=== PATIENT | female | born 1990 | race Two or more races ===

== ENCOUNTER 2025-01-29 10:05 | Emergency (ER) | payer MEDICAID, OTHER ==
[~2025-01-29] VITALS: Ht 154.9 cm; Wt 104.3 kg
[2025-01-29 10:08] VITALS: BP 152/94; PULSE 113; RESP 18; TEMP 98.5; O2SAT 100
[2025-01-29 12:10] LABS: Urine Protein, UAD Negative (Negative)
[2025-01-29 12:30] LABS: Hematocrit 44.5 % (36.0-46.0); Hemoglobin 14.9 g/dL (12.2-16.2); Mean Corpuscular Hemoglobin 28.8 pg (28.0-32.0); Mean Corpuscular Volume 85.9 fL (80.0-100.0); Nucleated Red Blood Cells % 0.1 %
[2025-01-29 12:40] LABS: Chloride 102 mmol/L (98-107); Potassium 4.2 mmol/L (3.5-5.1); Sodium 137 mmol/L (136-145)
[2025-01-29 12:41] LABS: Anion Gap 10 (5-15); Calcium 9.8 mg/dL (8.7-10.4); Carbon Dioxide 25 mmol/L (20-31)
[2025-01-29 12:46] LABS: BUN/Creatinine Ratio 6.8 (10.0-20.0); Glucose 85 mg/dL (74-106)
[2025-01-29 12:47] LABS: Blood Urea Nitrogen 5 mg/dL (9-23)
--- NOTE | 2025-01-29 13:49 | DVH ---
Procedure: US OB ULTRASOUND COMP LESS 14WKS Study Date and Requested Time: 01/29/2025 01:09 PM Study Description: US OB ULTRASOUND COMP LESS 14WKS History: clear vaginal fluids, btea-hc,000 Comparison: None Technique: Multiple high resolution hassan-scale images obtained of the uterus, fetus, and other gestat ional components with M-mode scanning for evaluation of heart rate. Findings: Single live intrauterine with gestational sac, yolk sac, and fetus visualized. heart rate of 155 bpm. Estimated gestational age 7 weeks/ 2 days based on mean gestational sac diameter of 2.69 cm and crown-rump length of 1 cm. 0.6 x 0.5 x 0.5 cm anechoic area adjacent to the gestational sac. Uterus measures 10.6 x 5.1 x 6.2 cm in size. Cervical os appears closed. Right ovary measures 3 x 2.1 x 2.5 cm with a 1.6 cm cyst with peripheral vascular flow which may repr esent a corpus luteal cyst. Normal right ovarian vascular flow. Left ovary is not visualized. No evidence of free fluid in the cul-de-sac. Impression: Single live intrauterine with heart rate of 155 bpm. Estimated gestational age 7 week s/ 2 days with estimated date of confinement 09/15/2025. 0.6 x 0.5 x 0.5 cm small subarachnoid hemorrhage is noted.
--- NOTE | 2025-01-30 11:08 | ED.PDOC ---
CERTIFICATION OFFICER HPI Comments A 34 YEAR OLD FEMALE PRESENTS TO THE ED WITH COMPLAINT OF VAGINAL DISCHARGE. PATIENT STATES HE HAS BEEN EXPERIENCING VAGINAL DISCHARGE THAT IS CLEAR IN COLOR FOR THE PAST 3 DAYS. PATIENT NOTES THAT SHE RECENTLY TESTED POSITIVE FOR WITH AN AT-HOME TEST 3 DAYS AGO. PATIENT DENIES DYSURIA, HEMATURIA, FLANK PAIN, VAGINAL BLEEDING/SPOTTING, FEVER, CHILLS, SHORTNESS OF BREATH, CHEST PAIN, ABDOMINAL PAIN, NAUSEA, VOMITING, HEADACHE, OR OTHER COMPLAINTS. NO OTHER SYMPTOMS OR MODIFYING FACTORS AT THIS TIME. PATIENT IS ALERT, ORIENTED X 4, AND HAS STEADY GAIT. Chief Complaint: Vaginal Discharge Time Seen by MD: 10:08 Reviewed Notes: Nurses Notes, Medications, Allergies Allergies: Coded Allergies: Penicillins (Verified Allergy, Unknown, 01/29/25) Information Source: Patient Mode of Arrival: Ambulatory Timing: Days Prehospital treatment: None Severity: Mild Vaginal Discharge: Clear Vaginal Lesions: None Vaginal Mass: None Onset Of Mass/Bleeding: Spontaneous Sexual Activity: Last Consensual [place]: Unknown Control: None History of: Current Blood Type: Unknown Symptoms of Possible : None Associated Signs and Symptoms: Vaginal Discharge Past Medical History PAST MEDICAL HISTORY: Denies Surgical History: Denies all surgeries LATHING SUPERVISOR History: No Pertinent LATHING SUPERVISOR History Family History Family History: Reviewed,noncontributory to illness Social History Smoker: Non-Smoker Alcohol: Denies ETOH Use Drugs: Denies Drug Use Lives In: Home Constitutional: denies: chills, diaphoresis, fatigue, fever, malaise, sweats, weakness, others EENTM: denies: blurred vision, double vision, ear bleeding, ear discharge, ear drainage, ear pain, ear ringing, eye pain, eye redness, hearing loss, mouth pain, mouth swelling, nasal discharge, nose bleeding, nose congestion, nose pain, photophobia, tearing, throat pain, throat swelling, voice changes, others Respiratory: denies: cough, hemoptysis, orthopnea, SOB at rest, shortness of breath, SOB with excertion, stridor, wheezing, others Cardiovascular: denies: chest pain, dizzy spells, diaphoresis, Dyspnea on exertion, edema, irregular heart beat, left arm pain, lightheadedness, palpitations, PND, syncope, others Gastrointestinal: denies: abdomen distended, abdominal pain, blood streaked bowels, constipated, diarrhea, dysphagia, difficulty swallowing, hematemesis, melena, nausea, poor appetite, poor fluid intake, rectal bleeding, rectal pain, vomiting, others Genitourinary: reports: , vagina discharge; denies: abnormal vagina bleeding, burning, dyspareunia, dysuria, flank pain, frequency, hematuria, incontinence, pain, urgency, others Neurological: denies: dizziness, fainting, headache, left sided numbness, left sided weakness, numbness, paresthesia, pre-existing deficit, right sided n umbness, right sided weakness, seizure, speech problems, tingling, tremors, weakness, others Musculoskeletal: denies: back pain, gout, joint pain, joint swelling, muscle pain, muscle stiffness, neck pain, others Integumetry: denies: bruises, change in color, change in hair/nails, dryness, laceration, lesions, lumps, rash, wounds, others Allergic/Immunocompromised: denies: Difficulty Healing, Frequent Infections, Hives, Itching, others Hematologic/Lymphatic: denies: anemia, blood clots, easy bleeding, easy bruising, swollen glands, others Endocrine: denies: excessive hunger, excessive sweating, excessive thirst, excessive urination, flushing, intolerance to cold, intolerance to heat, unexplained weight gain, unexplained weight loss, others Psychiatric: denies: anxiety, bipolar disorder, depression, hopeless, panic disorder, schizophrenia, sleepless, suicidal, others All Other Systems: Reviewed and Negative Physical Exam General Appearance: No Apparent Distress, Obese HEENT: Normal ENT Inspection, PERRL/EOMI, Pharynx Normal, TMs Normal Neck: Full Range of Motion, Non-Tender, Normal, Normal Inspection Respiratory: Chest Non-Tender, Lungs Clear, No Accessory Muscle Use, No Respiratory Distress, Normal Breath Sounds Cardiovascular: No Edema, No JVD, No Murmur, No Gallop, Normal Peripheral Pulses, Regular Rate/Rhythm Breast Exam: Deferred Gastrointestinal: No Organomegaly, Non Tender, No Pulsatile Mass, Normal Bowel Sounds, Soft Genitalia: Deferred Pelvic: Discharge (CLEAR VAGINAL DISCHARGE, NO ODOR. ), Normal External Exam Rectal: Deferred Extremities: No calf tenderness, Normal capillary refill, Normal inspection, No rmal range of motion, Non-tender, No pedal edema Musculoskeletal : Apperance: Normal Neurologic: Alert, gate operator II-XII nml as Tested, No Motor Deficits, Normal Affect, Normal Mood, No Sensory Deficits Cerebellar Function: Normal Reflexes: Normal Skin: Dry, Normal Color, Warm Peripheral Pulses: 2+ carotid (R), 2+ carotid (L) Lymphatic: No Adenopathy Was a procedure done? Was a procedure done?: No Differential Diagnosis (LATHING SUPERVISOR) Vaginal Bleeding: - Threatened, Ectopic , N/A Mass / Lesion: N/A Vaginal Discharge: , UTI, Vaginitis - Bacterial, Vaginitis - Candidal, Vaginitis - Trichomonas X-Ray, Labs, Meds, VS Vital Signs Date Time Temp Pulse Resp B/P (MAP) Pulse Ox O2 Delivery O2 Flow Rate FiO2 01/29/25 10:08 98.5 113 18 152/94 100 98.5 Lab Test 01/29/25 11:58 01/29/25 11:52 01/29/25 11:50 01/29/25 11:11 Range/Units Beta HCG, Quantitative 611317.2 H 1.5-4.2 mIU/mL Sodium Level 137 136-145 mmol/L Potassium Level 4.2 3.5-5.1 mmol/L Chloride Level 102 98-107 mmol/L Carbon Dioxide Level 25 20-31 mmol/L Anion Gap 10 5-15 Blood Urea Nitrogen 5 L 9-23 mg/dL Creatinine 0.74 0.550-1.02 mg/dL Glomerular Filtration Rate Calc 109 >90 mL/min BUN/Creatinine Ratio 6.8 L 10.0-20.0 Serum Glucose 85 74-106 mg/dL Calcium Level 9.8 8.7-10.4 mg/dL White Blood Count 8.6 4.4-10.8 10^3/uL Red Blood Count 5.19 4.0-5.20 10^6/uL Hemoglobin 14.9 12.2-16.2 g/dL Hematocrit 44.5 36.0-46.0 % Mean Corpuscular Volume 85.9 80.0-100.0 fL Mean Corpuscular Hemoglobin 28.8 28.0-32.0 pg Mean Corpuscular Hemoglobin Concent 33.6 32.0-36.0 g/dL Red Cell Distribution Width 13.1 11.8-14.3 % Platelet Count 255 140-450 10^3/uL Mean Platelet Volume 7.9 6.9-10.8 fL Neutrophils (%) (Auto) 65.8 37.0-80.0 % Lymphocytes (%) (Auto) 23.8 10.0-50.0 % Monocytes (%) (Auto) 8.9 0.0-12.0 % Eosinophils (%) (Auto) 0.7 0.0-7.0 % Basophils (%) (Auto) 0.8 0.0-2.0 % Neutrophils # (Auto) 5.7 1.6-8.6 10 ^3/uL Lymphocytes # (Auto) 2.0 0.4-5.4 10 ^3/uL Monocytes # (Auto) 0.8 0-1.3 10 ^3/uL Eosinophils # (Auto) 0.1 0-0.8 10 ^3/uL Basophils # (Auto) 0.1 0-0.2 10 ^3/uL Nucleated Red Blood Cells 0.1 % Urine Color Yellow Yellow Urine Clarity Clear Clear Urine pH 6.0 5.0-9.0 Urine Specific [place] 1.021 1.001-1.035 Urine Protein Negative Negative Urine Ketones Negative Negative Urine Blood Negative Negative /uL Urine Nitrite Negative Negative Urine Bilirubin Negative Negative Urine Urobilinogen Normal Negative mg/dL Urine Leukocyte Esterase Negative Negative /uL Urine RBC 3 0 - 4 /hpf Urine Microscopic WBC 1 0-5 /HPF Urine Squamous Epithelial Cells Few <5 /hpf Urine Bacteria Few H None Seen /hpf Urine Mucus Few None Seen Urine Glucose Normal Normal mg/dL Urine Test Positive Negative Procedure: US OB ULTRASOUND COMP LESS 14WKS Study Date and Requested Time: 01/29/2025 01:09 PM Study Description: US OB ULTRASOUND COMP LESS 14WKS History: clear vaginal fluids, btea-hc,000 Comparison: None Technique: Multiple high resolution hassan-scale images obtained of the uterus, fetus, and other gestational components with M-mode scanning for evaluation of heart rate. Findings: Single live intrauterine with gestational sac, yolk sac, and fetus visualized. heart rate of 155 bpm. Estimated gestational age 7 weeks/ 2 days based on mean gestational sac diameter of 2.69 cm and crown-rump length of 1 cm. 0.6 x 0.5 x 0.5 cm anechoic area adjacent to the gestational sac. Uterus measures 10.6 x 5.1 x 6.2 cm in size. Cervical os appears closed. Right ovary measures 3 x 2.1 x 2.5 cm with a 1.6 cm cyst with peripheral vascular flow which may represent a corpus luteal cyst. Normal right ovarian vascular flow. Left ovary is not visualized. No evidence of free fluid in the cul-de-sac. Impression: Single live intrauterine with heart rate of 155 bpm. Estimated gestational age 7 weeks/ 2 days with estimated date of confinement 09/15/2025. 0.6 x 0.5 x 0.5 cm small subarachnoid hemorrhage is noted. ATED BY: LIZZY GONZALEZ DO DICTATED DATE/TIME: 01/29/251346 SIGNED BY: LIZZY GONZALEZ DO SIGNED DATE/TIME: 01/29/251346 CC: X-Ray, Labs, Meds, VS Comment EXTERNAL MEDICAL RECORDS REVIEWED: [NONE] INDEPENDENT HISTORIANS: [NONE] SOCIAL DETERMINANTS OF HEALTH: [NONE] LABS ORDERED: CBC, BMP, UA, URINE , BETA HCG QUANT REVIEWED AND INTERPRETED RESULTS: BETA HCG QUANT 113,223.2 IMAGING ORDERED: NONE TREATMENTS ORDERED: NO PROCEDURES PERFORMED: NONE CRITICAL CARE TIME: NONE I HAVE DISCUSSED THE PATIENT WITH THE ATTENDING PHYSICIAN DR. MORIN AND HE AGREES WITH THE PATIENT'S PLAN OF CARE AND DISPOSITION. BASED ON HISTORY OF PRESENT ILLNESS, AND PHYSICAL EXAM, PATIENT WILL BE DISCHARGED HOME. SHARED DECISION MAKING: DISCUSSED WITH PATIENT THAT THEIR WORKUP WAS NORMAL. PATIENT INSTRUCTED TO FOLLOW UP WITH PRIMARY CARE PROVIDER IN 1-2 DAYS FOR RE- EVALUATION OF SYMPTOMS. PATIENT VERBALIZES UNDERSTANDING TO RETURN TO ED FOR NEW OR WORSENING SYMPTOMS OR IF FOLLOW UP WITH PCP CANNOT BE OBTAINED. PATIENT FEELS COMFORTABLE GOING HOME AT THIS TIME. ALL QUESTIONS ADDRESSED AT TIME OF DISCHARGE. Images Reviewed?: Images reviewed and evaluated by me Time of 1ST Reevaluation: 14:06 Reevaluation 1ST: Improved Patient Education/Counseling: Diagnosis, Treatment, Need For Follow Up Family Education/Counseling: Diagnosis, Treatment, Need For Follow Up Medical Screening: No EMC Exist At This Time Departure 1 Departure Time of Disposition: 14:06 Impression: Primary Impression: Normal in first trimester Disposition: 01 HOME / SELF CARE / HOMELESS Condition: Stable Additional Instructions: FOLLOW-UP WITH PCP IN 1 TO 2 DAYS. TAKE MEDICATIONS PRESCRIBED. RETURN TO ED FOR ANY NEW OR WORSENING SYMPTOMS. Discharged With: Self Critical Care Note Critical Care Time?: No Stability Stability form required: No I personally scribed for CARMEN SHERMAN ([email or web address]) on 01/29/25 at 11:26. Electronically submitted by Winston Ozuna ([email or web address]). I personally scribed for CARMEN SHERMAN ([email or web address]) on 01/29/25 at 13:54. Electronically submitted by Winston Ozuna ([email or web address]). CARMEN SHERMAN Jan 29, 2025 11:26
== END 2025-01-29 14:04 | disposition home or self-care (01) ==
LOC: ER 10:05
DX: O26.891 Other specified pregnancy related conditions, first trimester (principal); N89.8 Other specified noninflammatory disorders of vagina; Z88.0 Allergy status to penicillin; Z3A.01 Less than 8 weeks gestation of pregnancy
CPT/HCPCS: 36415; 76801; 80048; 81001; 81025; 84702; 85025